=== PATIENT | male | born 1950 | race Caucasian/White ===

== ENCOUNTER 2021-08-11 09:39 | Emergency (ER) | payer MEDICARE ==
[2021-08-11] MEDS ORDERED: HYDROcodone/APAP 7.5-325MG 1 EACH TAB PO ONE (10:04)
--- NOTE | 2021-08-11 10:09 | ED ---
General Adult HPI - General Chief complaint: Extremity Problem,Nontraumatic Stated complaint: Pain Time Seen by Provider: 08/11/21 10:00 Source: patient, family, RN notes reviewed, old records reviewed Mode of arrival: EMS Limitations: no limitations - History of Present Illness Initial comments: This is a well-appearing 71-year-old male that presents to the emergency room with bilateral posterior knee pain that started 3 days ago. States it is progr essively getting worse and he is now unable to ambulate related to the pain today. He does have a history of gout and stopped taking his medications for an upcoming entropion eye surgery on . He states he's never had gout in his knees before only in his big toe. Patient states that he does not want to interfere with his surgery so he did not take his medication. He states that the pain is severe 10 out of 10 with very limited range of motion. He denies any fevers, no vomiting or diarrhea. -: days(s) (3) Location: left, right, lower extremity (knees) Radiation: non-radiation Severity scale (1-10): 10 Quality: constant Consistency: constant Improves with: none Worsens with: movement Associated Symptoms: denies other symptoms Treatments Prior to Arrival: none - Related Data Previous Rx's Medication Instructions Recorded Colchicine 0.6 mg PO Q1HR #2 tablet 08/11/21 traMADol HCl [Ultram] 50 mg PO Q6H PRN #20 tab 08/11/21 Allergies Allergy/AdvReac Type Severity Reaction Status Date / Time No Known Allergies Allergy Verified 08/11/21 10:21 Review of Systems ROS Statement: Those systems with pertinent positive or pertinent negative responses have been documented in the HPI. ROS Other: All systems not noted in ROS Statement are negative. Past Medical History Past Medical History: Hypertension Additional Past Medical History / Comment(s): Hx of gout History of Any Multi-Drug Resistant Organisms: None Reported Smoking Status: Current some day smoker Past Alcohol Use History: None Reported Past Drug Use History: None Reported General Exam Limitations: no limitations General appearance: alert, in no apparent distress Eye exam: Present: conjunctival injection (left eye). Absent: scleral icterus, periorbital swelling Respiratory exam: Present: normal lung sounds bilaterally. Absent: respiratory distress, wheezes, rales, rhonchi, stridor, accessory muscle use Cardiovascular Exam: Present: regular rate, normal rhythm. Absent: JVD GI/Abdominal exam: Present: soft. Absent: distended, tenderness Extremities exam: Present: normal capillary refill. Absent: pedal edema Left Upper Leg exam: Present: normal inspection Knee exam: Present: normal inspection, tenderness (Posterior knee popliteal fossa), swelling (suprapatella), effusion, pain/laxity with valgus, pain/laxity with varus, full knee extension. Absent: abrasion, laceration, ecchymosis, def ormity, erythema Lower Leg exam: Absent: tenderness, swelling, erythema, palpable cord, Homans' sign Ankle exam: Present: erythema (dorsal, denies pain) Neurovascular tendon exam: Present: no vascular compromise. Absent: pulse deficit, abnormal cap refill, extremity cold to touch, pallor, foot drop Right Upper Leg exam: Absent: tenderness, swelling Knee exam: Present: normal inspection, tenderness (Posterior popliteal fossa), swelling, effusion, pain/laxity with valgus, pain/laxity with varus, full knee extension. Absent: ecchymosis, deformity, erythema Lower Leg exam: Absent: tenderness, swelling Ankle exam: Absent: tenderness, swelling Neurovascular tendon exam: Present: no vascular compromise. Absent: pulse deficit, abnormal cap refill, extremity cold to touch, pallor, foot drop Neurological exam: Present: alert, oriented X3 Psychiatric exam: Present: normal affect, normal mood Skin exam: Present: warm, dry, intact, normal color. Absent: cyanosis, diaphoretic, petechiae, pallor Course Vital Signs 08/11/21 08/11/21 08/11/21 09:40 12:02 13:56 Temperature 98.1 F Pulse Rate 96 95 67 Respiratory 24 18 18 Rate Blood Pressure 153/95 118/81 126/81 O2 Sat by Pulse 95 94 L 97 Oximetry 08/11/21 15:30 Temperature 98.4 F Pulse Rate 93 Respiratory 18 Rate Blood Pressure 126/83 O2 Sat by Pulse 93 L Oximetry - Reevaluation(s) Reevaluation #1: 08/11/21 14:45 Dr Padgett at bedside to aspirate joint, with depomedrol and lidocaine 2% injection after aspiration bilaterally. Time: 14:30 Medical Decision Making - Medical Decision Making 71-year-old male presents with bilateral knee pain that started 3 days ago, progressively getting worse and unable to ambulate today related to the pain. He does have a history of gout and stopped taking his medications for an upcoming entropion eye surgery on . On exam there are bilateral suprapatellar effusions worse on the left than on the right. There is no erythema noted. There is no evidence of Castillo's cysts. Lower extremities are warm with bounding pedal and posterior tibial pulses present bilaterally. Ultrasound of the left lower extremity was done and shows no evidence of DVT. There is normal flow and vascular waveforms. X-ray of left knee shows no acute fracture. There is a moderate patellar joint effusion. Dr. Padgett at bedside to aspirate joints of bilateral knees. He states this does not appear to be a septic joint. Synovial fluid was sent for culture and Gram stain. He injected Depo-Medrol and lidocaine bilaterally for pain control. Post procedure patient is able to take 3 steps in the emergency room with rel ief from pain. Dr. Padgett also suggested patient get colchicine and send patient home with Ultram for pain. Patient was directed to follow-up with his primary care doctor next week. Patient is agreeable to this plan of care. Case discussed with Dr. Smith - Lab Data Result diagrams: 08/11/21 11:00 08/11/21 11:00 Lab Results 08/11/21 08/11/21 Range/Units 11:00 11:00 WBC 19.8 H (3.8-10.6) k/uL RBC 4.44 (4.30-5.90) m/uL Hgb 14.6 (13.0-17.5) gm/dL Hct 43.5 (39.0-53.0) % MCV 97.9 (80.0-100.0) fL MCH 32.9 (25.0-35.0) pg MCHC 33.6 (31.0-37.0) g/dL RDW 12.4 (11.5-15.5) % Plt Count 240 (150-450) k/uL MPV 9.9 Neutrophils % 84 % Lymphocytes % 6 % Monocytes % 8 % Eosinophils % 1 % Basophils % 0 % Neutrophils # 16.5 H (1.3-7.7) k/uL Lymphocytes # 1.3 (1.0-4.8) k/uL Monocytes # 1.6 H (0-1.0) k/uL Eosinophils # 0.1 (0-0.7) k/uL Basophils # 0.1 (0-0.2) k/uL ESR 40 H (0-15) mm/hr Sodium 136 L (137-145) mmol/L Potassium 4.6 (3.5-5.1) mmol/L Chloride 99 (98-107) mmol/L Carbon Dioxide 23 (22-30) mmol/L Anion Gap 14 mmol/L BUN 28 H (9-20) mg/dL Creatinine 1.09 (0.66-1.25) mg/dL Est GFR (CKD-EPI)AfAm 79 (>60 ml/min/1.73 sqM) Est GFR (CKD-EPI)NonAf 68 (>60 ml/min/1.73 sqM) Glucose 152 H (74-99) mg/dL Calcium 9.1 (8.4-10.2) mg/dL Disposition Clinical Impression: Gout attack Disposition: HOME SELF-CARE Condition: Good Instructions (If sedation given, give patient instructions): Low Purine Diet (ED), Gout (ED) Additional Instructions: Take medication as prescribed. Follow-up with the primary care doctor on Friday. Return to the emergency room with any new or worsening symptoms including increased pain, fevers or redness. Prescriptions: Colchicine 0.6 mg PO Q1HR #2 tablet traMADol HCl [Ultram] 50 mg PO Q6H PRN #20 tab PRN Reason: Pain Is patient prescribed a controlled substance at d/c from ED?: No Referrals: None,Stated [Primary Care Provider] - 1-2 days Time of Disposition: 15:01
[2021-08-11] MEDS ORDERED: SODIUM CHLORIDE 0.9% 500 ML 500 ML IV STA (10:21)
[2021-08-11] MEDS ORDERED: HYDROmorphone 0.5 MG/0.5 ML SYRINGE IVP STA ×2 (10:21→13:36)
[2021-08-11 11:17] LABS: Calcium 9.1 mg/dL (8.4-10.2)
[2021-08-11 11:18] LABS: Potassium 4.6 mmol/L (3.5-5.1)
[2021-08-11 11:20] LABS: Basophils # (A) 0.1 k/uL (0-0.2); Basophils % (A) 0 %; Eosinophils # (A) 0.1 k/uL (0-0.7); Eosinophils % (A) 1 %; HCT 43.5 % (39.0-53.0); HGB 14.6 gm/dL (13.0-17.5); Lymphocytes # (A) 1.3 k/uL (1.0-4.8); Lymphocytes % (A) 6 %; MCH 32.9 pg (25.0-35.0); MCHC 33.6 g/dL (31.0-37.0); MCV 97.9 fL (80.0-100.0); Mean Platelet Volume 9.9; Monocytes # (A) 1.6 k/uL (0-1.0); Monocytes % (A) 8 %; Neutrophils # (A) 16.5 k/uL (1.3-7.7); Neutrophils % (A) 84 %; Platelet Count 240 k/uL (150-450); RBC 4.44 m/uL (4.30-5.90); RDW 12.4 % (11.5-15.5); WBC 19.8 k/uL (3.8-10.6)
[2021-08-11 12:04] VITALS: RESP 18
--- NOTE | 2021-08-11 12:04 | US ---
EXAMINATION TYPE: US venous doppler duplex LE LT DATE OF EXAM: 08/11/2021 10:23 AM COMPARISON: NONE CLINICAL HISTORY: pain. Left leg pain for the past 3 days SIDE PERFORMED: Left TECHNIQUE: The lower extremity deep venous system is examined utilizing real time linear array sonog yoni with graded compression, doppler sonography and color-flow sonography. VESSELS IMAGED: Common Femoral Vein Deep Femoral Vein Greater Saphenous Vein * Femoral Vein Popliteal Vein Small Saphenous Vein * Proximal Calf Veins (* superficial vessels) Left Leg: Negative for DVT Grayscale, color doppler, spectral doppler imaging performed of the deep veins of the left lower extr emity. There is normal flow, compressibility, vascular waveforms. IMPRESSION: No ultrasound evidence for acute DVT in the left lower extremity.
--- NOTE | 2021-08-11 12:43 | XR ---
EXAMINATION TYPE: XR knee complete LT DATE OF EXAM: 08/11/2021 CLINICAL HISTORY: Pain, swelling, and difficulty walking. TECHNIQUE: Three views of the left knee are obtained. COMPARISON: None. FINDINGS: There is no acute fracture/dislocation evident in left knee. [id number] narrowing me dial tibiofemoral compartment. Mild narrowing patellofemoral compartment. Moderate to large suprapate llar joint effusion. No significant spurring. IMPRESSION: As above.
[2021-08-11 12:55] LABS: Erythrocyte Sedimentation Rate 40 mm/hr (0-15)
[2021-08-11] MEDS ORDERED: methylPREDNISolone ACETATE 40 MG/ML 1 ML VIAL INTRABURSA STA ×2 (14:11→14:13)
[2021-08-11] MEDS ORDERED: COLCHICINE 0.6 MG EACH PO SCH (15:00)
[2021-08-11 16:09] VITALS: BP 126/83; PULSE 93; TEMP 98.4
[2021-08-11 16:49] LABS: Appearance,BF Cloudy; Nucleated Cells, Body Fluid 27600 /uL; RBC, Body Fluid 200 /uL
[2021-08-11 16:50] LABS: Mononuclear WBC,Body Fluid 10 %; Polynuclear WBC,Body Fluid 90 %; Total Cells Counted,Body Fluid 100
[2021-08-11 16:52] LABS: Appearance,BF Cloudy; RBC, Body Fluid 40 /uL
[2021-08-11 16:53] LABS: Nucleated Cells, Body Fluid 28800 /uL
[2021-08-11 16:55] LABS: Mononuclear WBC,Body Fluid 16 %; Polynuclear WBC,Body Fluid 84 %; Total Cells Counted,Body Fluid 100
[2021-08-12 00:06] LABS: Synovial Fld Crystals Seen (None Seen)
--- NOTE | 2021-08-12 08:35 | P.CNOR ---
History of Present Illness - [facility] Consult date: 08/11/21 History of present illness: The patient is a 71 year old male with a medical history significant for gout who presents to the ED with a 2 day history of progressively worsening bilateral knee pain (L>R) and an inability to walk. He was evaluated by the ED and they have concern about bilateral spontaneous septic arthritis. I was called to evaluate the patient in the ED to rule out septic arthritis. At the time of my evaluation, the patient is complaining of bilateral knee pain. He denies injury. He denies fever, chills or recent illness. He has not had any invasive procedures on his knees. He states that he has had multiple flares of gout in the past, always in his feet. He has not been taking his gout medications due to an upcoming eye surgery. Past Medical History Past Medical History: Hypertension Additional Past Medical History / Comment(s): Hx of gout History of Any Multi-Drug Resistant Organisms: None Reported Smoking Status: Current some day smoker Past Alcohol Use History: None Reported Past Drug Use History: None Reported Medications and Allergies Home Medications Medication Instructions Recorded Confirmed Type Colchicine 0.6 mg PO Q1HR #2 tablet 08/11/21 Rx traMADol HCl [Ultram] 50 mg PO Q6H PRN #20 tab 08/11/21 Rx Allergies Allergy/AdvReac Type Severity Reaction Status Date / Time No Known Allergies Allergy Verified 08/11/21 10:21 Physical Examination The patient is resting comfortably in bed. He is in no apparent distress. He is alert and able to answer questions. His head is normocephalic and atraumatic. He demonstrates non-labored breathing. His abdomen is non-obese. Focused exams of both lower extremities were conducted: LEFT LE: No pain with PROM hip. Large, tense knee effusion. No overlying erythema or warmth. No open wounds or scars over the knee. Tenderness diffusely over the knee. Pain with PROM. Motor and sensory function intact distally. RIGHT LE: No pain with PROM hip. Large, tense knee effusion. No overlying erythema or warmth. No open wounds or scars over the knee. Tenderness diffusely over the knee. Pain with PROM. Motor and sensory function intact distally. Results - Labs Labs: Abnormal Lab Results - Last 24 Hours (Table) 08/11/21 08/11/21 08/11/21 Range/Units 11:00 11:00 14:54 WBC 19.8 H (3.8-10.6) k/uL Neutrophils # 16.5 H (1.3-7.7) k/uL Monocytes # 1.6 H (0-1.0) k/uL ESR 40 H (0-15) mm/hr Sodium 136 L (137-145) mmol/L BUN 28 H (9-20) mg/dL Glucose 152 H (74-99) mg/dL Synovial Crystals Seen A (None Seen) 08/11/21 Range/Units 14:54 WBC (3.8-10.6) k/uL Neutrophils # (1.3-7.7) k/uL Monocytes # (0-1.0) k/uL ESR (0-15) mm/hr Sodium (137-145) mmol/L BUN (9-20) mg/dL Glucose (74-99) mg/dL Synovial Crystals Seen A (None Seen) Microbiology - Last 24 Hours (Table) 08/11/21 14:54 Gram Stain - Preliminary Synovial Fluid Body Fluid Culture - Preliminary 08/11/21 14:54 Gram Stain - Preliminary Synovial Fluid Body Fluid Culture - Preliminary H & H 08/11/21 Range/Units 11:00 Hgb 14.6 (13.0-17.5) gm/dL Hct 43.5 (39.0-53.0) % Result Diagrams: 08/11/21 11:00 08/11/21 11:00 Assessment and Plan Assessment: Bilateral knee gouty arthritis, acute flare Plan: I explained to the patient and Dr. Smith that I have an extremely low suspicion of septic arthritis as it would be exceedingly unlikely to have bilateral spo ntaneous septic arthritis in a relatively heathy male. His history (multiple flares of gout, not currently taking his gout medications, acute onset, bilateral presentation etc.) and his exam are both consistent with gout. Both knees were aspirated in the ED. The fluid did not appear purulent. It was sent for analysis and both knee had synovial WBC of ~28K and both demonstrated numerous intra-cellular and extra-cellular MONOSODIUM URATE crystals consistent with GOUT. Both knees were injected with a combination of depomedrol and lidocaine. He had almost instantaneous relief and was able to walk in the ED. I recommended colchicine and follow-up with his PCP. PROCEDURE: Verbal consent was obtained. The superolateral portal of both knees were prepped with alcohol and chloraprep. Using sterile technique separate 18 gauge needles was used to aspirate each knee. ~90mL of yellow fluid was aspir ated from the left knee and ~40mL of yellow fluid was aspirated from the right knee. This was sent to the lab and came back positive for gout. Each knee was re-prepped and using sterile technique a solution of 1mL of 40mg/ml of depomedrol and 3mL of 2% lidocaine was injected into each knee. The patient tolerated with well and had almost immediate improvement in his symptoms. Time with Patient: Greater than 30
== END 2021-08-11 15:30 | disposition home or self-care (01) ==
LOC: EC 09:39
DX: M10.9 Gout, unspecified (principal); I10 Essential (primary) hypertension; F17.200 Nicotine dependence, unspecified, uncomplicated
CPT/HCPCS: 36415; 89060; 80048; 85652; 89050; 85025; 87070; 87205; 73562; 93971; 99284; 96374; 96376; 96361; 20610; J1030; J1170

== ENCOUNTER → 2024-06-11 | Outpatient (CLI) | payer MEDICARE ==
[2024-06-11 14:58] LABS: HCT 39.5 % (39.6-50.0); HGB 13.3 g/dL (13.0-17.0); MCHC 33.7 g/dL (32.0-37.0); Mean Platelet Volume 12.8 FL (9.5-12.2); NRBC Per 100 WBC 0 X 10*3/uL (0.00-0.01); Platelet Count 257 X 10*3/uL (140-440); RBC 4.03 X 10*6/uL (4.40-5.60); RDW 12.6 % (11.5-14.5); WBC 14.94 X 10*3/uL (4.50-10.00)
[2024-06-11 15:06] LABS: Blood Urea Nitrogen 17.9 mg/dL (9.0-27.0); Carbon Dioxide 26.6 mmol/L (21.6-31.8); Chloride 103 mmol/L (96-109); Potassium 4.3 mmol/L (3.5-5.5); Sodium 142 mmol/L (135-145)
== END | disposition home or self-care (01) ==
LOC: LABPAT 09:40
PROVIDERS: ATTEND Internal Medicine
DX: Z01.818 Encounter for other preprocedural examination (principal); I35.0 Nonrheumatic aortic (valve) stenosis
CPT/HCPCS: 80051; 82565; 84520; 85027